=== PATIENT | female | born 1970 | race Native Hawaiian/Other Pacific Islander ===

== ENCOUNTER 2024-06-06 11:53 | Emergency (ER) | payer OTHER ==
[~2024-06-06] VITALS: Ht 157.5 cm; Wt 59.0 kg
[~2024-06-06 11:53] MED LIST: ASPI81CH43; NIFE1TAB31 PO
[2024-06-06 12:28] LABS: Basophils # (auto) 0.1 10 ^3/uL (0-0.2); Basophils % (auto) 0.7 % (0.0-2.0); Eosinophils # (auto) 0.5 10 ^3/uL (0-0.8); Eosinophils % (auto) 6.1 % (0.0-7.0); Hematocrit 38.7 % (36.0-46.0); Lymphocytes # (auto) 1.5 10 ^3/uL (0.4-5.4); Lymphocytes % (auto) 16.6 % (10.0-50.0); Mean Corpuscular Hemoglobin 29.1 pg (28.0-32.0); Mean Corpuscular Hgb Conc. 33.6 g/dL (32.0-36.0); Mean Corpuscular Volume 86.5 fL (80.0-100.0); Monocytes # (auto) 0.5 10 ^3/uL (0-1.3); Monocytes % (auto) 5.7 % (0.0-12.0); Neutrophils # (auto) 6.3 10 ^3/uL (1.6-8.6); Neutrophils % (auto) 70.9 % (37.0-80.0); Platelet Count (auto) 202 10^3/uL (140-450); Red Blood Cells 4.48 10^6/uL (4.0-5.20); Red Cell Distribution Width 16.1 % (11.8-14.3); White Blood Cell 8.9 10^3/uL (4.4-10.8)
--- NOTE | 2024-06-06 12:33 | ED.PDOC ---
HPI Comments 54 y/o F is BIBA for evaluation of a witnessed syncopal episode while seated today. Per EMS report, patient endorses on being outside with her daughter when she began "feeling bad" and then "blacked out" no fall or injury. Patient passed out in her seat and no fall or injury or trauma occurred. Syncopal episode lasted approximately 1 minute. EMS states on patient being hypotensive, initially, on scene. blood pressure of 74/42, pulse rate of 87, respiratory rate of 18, SpO2 of 100%RA Patient reports receiving current treatment for her VERONIKA at [facility]. She is on oral chemotherapy. Patient denies having any symptoms at this time. Vitals on scene: Vitals upon ED arrival: blood pressure of 102/68, pulse rate of 74, respiratory rate of 16, SpO2 of 100RA Past medical history: VERONIKA, CVA, HTN, chronic back pain, asthma Past surgical history: breast augmentation, gallbladder, bowel resection, and partial liver resection HPI: Poor Historian. REVIEW OF SYSTEMS: CONSTITUTIONAL: Denies acute: fever, diaphoresis, chills, generalized weakness. HEAD: Denies acute: headache, photophobia Eyes: Denies acute: Double vision, vision loss, eye pain, eye discharge. EARS: Denies acute: tinnitus, hearing loss, ear discharge, ear pain, THROAT: Denies acute: sore throat, swelling, difficulty swallowing , pain with swallowing, change in voice. NECK: Denies acute: neck pain, neck swelling, stiff neck. HEART: Denies acute : chest pain, palpitations, LUNGS: Denies acute: SOB, wheezing, cough, hemoptysis ABDOMEN: Denies acute: abdominal pain, Nausea, Vomiting, diarrhea, melena , hematemesis, hematochezia SKIN: Denies acute: rash, redness, lesions, itchiness. EXTREMITIES: Denies acute: calf pain, numbness, tingling, weakness, denies pain in extremity. Denies acute: Low back pain. Neuro: Denies acute: focal neurological deficit, motor or sensory focal neurological deficit, tremors, seizure like activity, confusion, dizziness, change in mental status, loss of bowel or bladder function, cauda equina like symptoms. : Denies acute: dysuria, hematuria, flank pain, increase in urinary frequency. PSYCH: Denies acute: hallucination, suicidal ideation, homicidal ideation. FEMALE: Denies acute: abnormal vaginal bleeding, foul odor, unusual discharge. PHYSICAL EXAM: General: ----no----acute distress, awake and alert. Head: normocephalic, atraumatic. Neck: supple, trachea is midline, no swelling. Throat: Normal phonation. Eyes:, no erythema, no purulent discharge, no proptosis, no icterus. Heart: regular rate, regular rhythm, no significant murmur appreciated. Lungs: no apparent respiratory distress, Able to speak in full sentences. No wheezing, no rhonchi, no crackles. No stridors Clear to auscultation bilaterally. Abdomen: non tender to palpation, non distended, soft, no guarding, no rebound, + bowel sounds. Neuro: Awake, Alert, oriented to name, self, situation, follows commands GCS=15. Speech is normal. Skin: no petechia, no purpura, no cyanosis, non-pale, not jaundice. Lower extremities: --no - Pitting edema no deformity, no focal swelling, no calf TTP. Makes eye contact. moves all four extremities. Face: no apparent facial droop. ED COURSE: Chief Complaint: Syncope Time Seen by MD: 12:00 Primary Care Provider: ALEKS Reviewed Notes: Nurses Notes, Gate Agent Notes, Medications, Allergies Allergies: Coded Allergies: Codeine (Verified Allergy, Severe, RASH, 11/14/10) Penicillin G (Verified Allergy, Severe, 11/14/10) Home Meds Reported Medications Nifedipine (Nifedipine Er) 30 Mg Tab, 30 MG PO DAILY, #30 03/24/14 Aspirin (Asa) 81 Mg Ch 11/14/10 Information Source: Patient, Emergency Med Personnel Mode of Arrival: EMS Past Medical History PAST MEDICAL HISTORY: Asthma, Cancer (VERONIKA), CVA, HTN Past Medical History (Other): chronic back pain Surgical History (Other): breast augmentation, gallbladder, bowel, and partial liver resection MEDICAL AFFAIRS SPECIALIST History: No Pertinent MEDICAL AFFAIRS SPECIALIST History Family History Family History: No family hx of Cancer Social History Smoker: Quit Less Than 1 Year Alcohol: Denies ETOH Use Drugs: Denies Drug Use Lives In: Home EKG EKG : Pulse Rate (adult): 61 [place]: Normal Cardiac Rhythm: NSR Block: None Hypertrophy: None ST: Normal Was a procedure done? Was a procedure done?: No CP Differential Dx Differential Diagnosis: N/A Differential Diagnosis: Other (Insert syncope) X-Ray, Labs, Meds, VS Vital Signs Date Time Temp Pulse Resp B/P (MAP) Pulse Ox O2 Delivery O2 Flow Rate FiO2 06/06/24 13:46 98.6 71 16 113/68 (83) 100 98.6 06/06/24 13:16 96 16 100 Room Air* 0 21 06/06/24 12:56 98.6 96 16 112/70 (84) 100 98.6 06/06/24 12:56 96 16 100 Room Air 06/06/24 12:33 61 06/06/24 12:15 99.9 74 16 102/68 (79) 100 99.9 06/06/24 12:04 61 Lab Test 06/06/24 14:35 06/06/24 12:40 06/06/24 12:12 Range/Units Lactic Acid Level 1.1 2.2 *H 0.4-2.0 mmol/L Troponin I High Sensitivity 8 7 6 </=34 ng/L White Blood Count 8.9 4.4-10.8 10^3/uL Red Blood Count 4.48 4.0-5.20 10^6/uL Hemoglobin 13.0 12.2-16.2 g/dL Hematocrit 38.7 36.0-46.0 % Mean Corpuscular Volume 86.5 80.0-100.0 fL Mean Corpuscular Hemoglobin 29.1 28.0-32.0 pg Mean Corpuscular Hemoglobin Concent 33.6 32.0-36.0 g/dL Red Cell Distribution Width 16.1 H 11.8-14.3 % Platelet Count 202 140-450 10^3/uL Mean Platelet Volume 9.1 6.9-10.8 fL Neutrophils (%) (Auto) 70.9 37.0-80.0 % Lymphocytes (%) (Auto) 16.6 10.0-50.0 % Monocytes (%) (Auto) 5.7 0.0-12.0 % Eosinophils (%) (Auto) 6.1 0.0-7.0 % Basophils (%) (Auto) 0.7 0.0-2.0 % Neutrophils # (Auto) 6.3 1.6-8.6 10 ^3/uL Lymphocytes # (Auto) 1.5 0.4-5.4 10 ^3/uL Monocytes # (Auto) 0.5 0-1.3 10 ^3/uL Eosinophils # (Auto) 0.5 0-0.8 10 ^3/uL Basophils # (Auto) 0.1 0-0.2 10 ^3/uL Nucleated Red Blood Cells 0.0 % Sodium Level 143 136-145 mmol/L Potassium Level 3.8 3.5-5.1 mmol/L Chloride Level 111 H 98-107 mmol/L Carbon Dioxide Level 24 20-31 mmol/L Anion Gap 8 5-15 Blood Urea Nitrogen 17 9-23 mg/dL Creatinine 1.04 H 0.550-1.02 mg/dL Glomerular Filtration Rate Calc 63 >90 mL/min BUN/Creatinine Ratio 16.3 10.0-20.0 Serum Glucose 85 74-106 mg/dL Calcium Level 9.4 8.7-10.4 mg/dL Magnesium Level 1.9 1.6-2.6 mg/dL Total Bilirubin 1.3 H 0.2-1.0 mg/dL Aspartate Amino Transferase (AST) 34 13-40 U/L Alanine Aminotransferase (ALT) 25 7-40 U/L Alkaline Phosphatase 75 46-116 U/L B-Type Natriuretic Peptide 26.72 0-100 pg/mL Total Protein 6.2 5.7-8.2 g/dL Albumin 4.3 3.2-4.8 g/dL [place] [id number] Ph: [phone] DIAGNOSTIC IMAGING Diagnostic Imaging Report : [id number] Signed PATIENT: KARMEN MAHER ACCT: [id number] UNIT: [id number] : 1970 LOC: ER ROOM / BED: / AGE / SEX: 54 / F ADM STATUS: REG ER SERVICE 1203 ORDERING PHYSICIAN: LARS HOOD DO PROCEDURE(s): CXRP - CHEST PORTABLE REASON: syncope and collapse ORDER NUMBER(s): [id number], ACCESSION NUMBER(s): [id number] CHEST RADIOGRAPH Indication: syncope and collapse Technique: Single frontal view of the chest was obtained Comparison: None FINDINGS: Lines and Tubes: None Lungs: No focal consolidation. Pleura: No effusion. No pneumothorax. Cardiomediastinal contours: Unremarkable Bones: No acute osseous abnormality. S shaped scoliosis. IMPRESSION: No acute cardiopulmonary disease. ATED BY: DARYL JUSTIN MD DICTATED DATE/TIME: 06/06/248 SIGNED BY: DARYL JUSTIN MD SIGNED DATE/TIME: 06/06/248 CC: Time of 1ST Reevaluation: 12:00 Reevaluation 1ST: Unchanged Patient Education/Counseling: Diagnosis, Treatment Family Education/Counseling: No Family Present Comments Patient presented with the above HPI.--syncope and collapse----workup was initiated. patient was found with the above mentioned diagnosis. the following medications were ordered: please refer to order lists of meds and tests obtained by myself Dr. Hood. Patient ED course and VS have been stabilized. Patient has been reassessed in the ED and remained in a stable condition. Patient has been observed in the ED adequate length of time to insure improvement/stability. Escalation of care considered: Consideration of escalation to observation or admission Patient was ADMITTED to the medicine team for further evaluation and treatment of their presentation. However I was notified that the patient eloped All the reports of any imaging studies that were ordered by myself were reviewed by myself. Departure 1 Departure Time of Disposition: 13:40 Impression: Primary Impression: Syncope and collapse Additional Impression: Eloped from emergency department Disposition: 07 LEFT AWOL/ELOPED Admit to: Tele Condition: Guarded Discharged With: Self Critical Care Note Critical Care Time?: No Heart Score Heart Score: Heart Score Response (Comments) Value History Slightly Suspicious 0 EKG Normal 0 Age 45-64 1 Risk Factors >3 or Hx ASHD 2 Troponin Normal limit 0 Total 3 Differentail Diagnosis (BRN) Differential Diagnosis: Other Other Differential Diagnosis Includes but not limited to thyroid disease, encephalopathy, electrolyte abnormality, sepsis, infection, intracranial pathology, drug adverse effects, arrhythmia, kidney insufficiency, ACS, CVA, malignancy, anemia I personally scribed for LARS HOOD DO ([email or web address]) on 06/06/24 at 12:33. Electronically submitted by Michael Davis ([email or web address]). LARS HOOD DO Jun 06, 2024 12:33
[2024-06-06 12:48] LABS: Alanine Aminotransferase 25 U/L (7-40); Albumin 4.3 g/dL (3.2-4.8); Alkaline Phosphatase 75 U/L (46-116); Anion Gap 8 (5-15); Aspartate Aminotransferase 34 U/L (13-40); BUN/Creatinine Ratio 16.3 (10.0-20.0); Blood Urea Nitrogen 17 mg/dL (9-23); Calcium 9.4 mg/dL (8.7-10.4); Carbon Dioxide 24 mmol/L (20-31); Chloride 111 mmol/L (98-107); Glucose 85 mg/dL (74-106); Magnesium 1.9 mg/dL (1.6-2.6); Potassium 3.8 mmol/L (3.5-5.1); Sodium 143 mmol/L (136-145); Total Protein 6.2 g/dL (5.7-8.2)
[2024-06-06 12:49] LABS: Bilirubin, Total 1.3 mg/dL (0.2-1.0)
[2024-06-06 12:50] LABS: Lactic Acid w/Reflex 2.2 mmol/L (0.4-2.0)
--- NOTE | 2024-06-06 12:50 | DVH ---
CHEST RADIOGRAPH Indication: syncope and collapse Technique: Single frontal view of the chest was obtained Comparison: None FINDINGS: Lines and Tubes: None Lungs: No focal consolidation. Pleura: No effusion. No pneumothorax. Cardiomediastinal contours: Unremarkable Bones: No acute osseous abnormality. S shaped scoliosis. IMPRESSION: No acute cardiopulmonary disease.
[2024-06-06] MEDS: SODIUM CHLORIDE 0.9% 1,000 ML IV ONE (13:07)
[2024-06-06 13:16] VITALS: PULSE 96; RESP 16; O2SAT 100
[2024-06-06 13:46] VITALS: BP 113/68; PULSE 71; RESP 16; TEMP 98.6; O2SAT 100
--- NOTE | 2024-06-06 23:46 | ECG ---
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
== END 2024-06-06 18:54 | disposition left against medical advice (07) ==
LOC: EDUNIT# 11:53 → EDBD 11:53 → ER 11:53
DX: R55 Syncope and collapse (principal); I10 Essential (primary) hypertension; J45.909 Unspecified asthma, uncomplicated; R06.02 Shortness of breath; Z79.82 Long term (current) use of aspirin; Z79.899 Other long term (current) drug therapy; I63.9 Cerebral infarction, unspecified; Z88.0 Allergy status to penicillin; Z88.5 Allergy status to narcotic agent
CPT/HCPCS: 36415; 71045; 80053; 82947; 83605; 83735; 83880; 84484; 85025; 93005; 96360; 99285; J7030